=== PATIENT | male | born 1960 | race Caucasian/White ===

== ENCOUNTER 2016-10-13 06:15 | Day surgery (SDC) | payer OTHER ==
[2016-10-11 17:43] VITALS: BMI 23.7
[2016-10-13] MEDS ORDERED: ROPIVACAINE HCL 0.5% 30ML VIAL ONE (07:14)
[2016-10-13] MEDS ORDERED: MIDAZOLAM HCL 2 MG/2 ML SINGLE DOSE VIAL ONE ×2 (07:16)
[2016-10-13] MEDS ORDERED: PROPOFOL 20 ML ONE (07:41)
[2016-10-13] MEDS ORDERED: SUCCINYLCHOLINE CHLORIDE 200 MG/10 ML VIAL ONE (07:41)
[2016-10-13] MEDS ORDERED: LIDOCAINE HCL/PF 2% SDV 5ML VIAL ONE (08:17)
[2016-10-13] MEDS ORDERED: ceFAZolin SODIUM 1 GM VIAL IVPB ONE (08:25)
[2016-10-13] MEDS ORDERED: ceFAZolin SODIUM 1 GM VIAL ONE (08:26)
[2016-10-13] MEDS ORDERED: ePHEDrine SULFATE 50 MG/1 ML AMPULE ONE (08:54)
[2016-10-13] MEDS ORDERED: KETOROLAC TROMETHAMINE 30 MG/1 ML VIAL ONE (08:55)
[2016-10-13] MEDS ORDERED: DEXAMETHASONE SOD PHOSPHATE 4 MG/1 ML VIAL ONE (08:55)
[2016-10-13] MEDS ORDERED: ONDANSETRON 4 MG/2 ML VIAL IVPUSH PRN (08:56)
[2016-10-13] MEDS ORDERED: oxyCODONE HCL 5 MG TABLET PO PRN (08:56)
[2016-10-13] MEDS ORDERED: LACTATED RINGERS SOLUTION 1,000 ML IV SCH (09:00)
--- NOTE | 2016-10-13 11:06 | HP ---
[facility] - Chief Complaint Chief Complaint: right shoulder pain History Source: Patient Limitations to Obtaining History: No Limitations - Past Medical History Allergies/Adverse Reactions: Allergies Allergy/AdvReac Type Severity Reaction Status Date / Time No Known Allergies Allergy Verified 10/11/16 17:43 - Current Medications Current Medications: Home Medications Medication Instructions Recorded NK [No Known Home Medication] 10/11/16 Satellite Physical Exam - Physical Examination Vital Signs: Vital Signs Period Temp Pulse Resp BP Sys/Anthony Pulse Ox Last 24 Hr 97.2 F-97.8 F 50-73 12-20 16-131/72-81 97-99 Extremities: Other (+ impingement sign and weakness with TDA) [facility] Impression/Plan - Impression/Plan Impression: impingement right shoulder +/- RC tear Operative Procedure: athroscopy right shoulder with decompression and possible RC repair Date to be Performed: 10/13/16
--- NOTE | 2016-10-13 11:08 | OP ---
Operative Note - Note: Operative Date: 10/13/16 Pre-Operative Diagnosis: impingement +/- RC tear Operation: arthroscopy right shoulder with debridement and RC repair Post-Operative Diagnosis: Other (impingement + RC tear) Surgeon: Amor Caraballo Anesthesia: General Operative Report Dictated: Yes
[2016-10-13 14:18] VITALS: TEMP 97.6
[2016-10-13 14:31] VITALS: BP 120/70; PULSE 58
--- NOTE | 2016-10-13 20:52 | OP ---
DATE OF OPERATION: 10/13/2016 PREOPERATIVE DIAGNOSIS: Impingement syndrome, right shoulder, plus/minus rotator cuff tear. POSTOPERATIVE DIAGNOSIS: Impingement syndrome, plus rotator cuff tear. SURGICAL PROCEDURE: Arthroscopy right shoulder, subacromial debridement bone and soft tissue, and arthroscopic repair for rotator cuff. SURGICAL ATTENDING: Amor Caraballo M.D. ANESTHESIA: Regional and general. CLOSURE: A Fiberwire suture with 1 swivel lock for rotator cuff, 0 nylon for skin. ESTIMATED BLOOD LOSS: Negligible. COMPLICATIONS: None. CONDITION: To recovery room in stable condition. DESCRIPTION OF PROCEDURE: Patient was taken to the operating room on October 13, 2016. Regional and general anesthesia was administered by the anesthesiologist. Intravenous Kefzol was administered prophylactically prior to the case. Patient was placed in the beach chair position with all prominences well padded. The right shoulder area was prepped and draped in the usual sterile fashion. First a diagnostic arthroscopy of glenohumeral joint was performed and posterior portal was made 2 fingerbreadths below the acromion, first with a number 15 blade followed by a blunt trocar. Circumferential exam of glenohumeral joint revealed the following: Intact labrum. Circumferentially intact glenohumeral head. Articular cartilage intact. Intact biceps and biceps anchor. No loose bodies in the axillary pouch. intact to its insertion. On the undersurface of the supra- and infraspinatus, appeared to be intact. Fluid was drained from the shoulder and trocar was removed. Posterior trocar was redirected in subacromial space. Accessory lateral port was made 2 fingerbreadths from the trocar. A bursectomy was performed using Arthrocare device and a shaver. The undersurface of the acromion was burred until it was raised to the appropriate level. Coracoacromial ligament was identified and detached. The anterior acromial was visualized and was further debrided. Soft tissue encasing the humeral head was debrided. There appeared to be a high grade partial thickness tear of the rotator cuff, the most anterior portion. This tear was holding on by very, very thin amount of rotator cuff at its most anterior portion of the supraspinatus. This was completed using the Arthrocare device, and the area was burred, and had some bleeding bone. Using the Scorpion needle punch, the Fiberwire sutures were passed through the rotator cuff. They were placed through the eyelet hole of the swivel lock and malleted into the greater tuberosity, and the anchor was screwed adding extra fixation. The sutures were flush with the bone. Probing revealed excellent repair. Good range of motion, no interference with the subacromial space. Fluid was drained. The dressings were applied. Sling was applied. The patient was awoken from anesthesia and transferred to the recovery room in stable condition. No complications. Estimated blood loss negligible. Elise [place]/[id number]
--- NOTE | 2016-10-14 14:52 | PATH ---
Surgical Pathology Report Patient Name: CARITO KRUSE [facility]. Rec. #: [id number] /Age/Gender: 1960 (Age: 56) / M Account: [id number] Location: [facility] Taken: 10/13/2016 Received: 10/13/2016 Reported: 10/14/2016 Physicians: Amor Caraballo M.D. Specimen(s) Received SHAVINGS RIGHT SHOULDER Clinical History Right shoulder impingement syndrome Final Diagnosis SOFT TISSUE, RIGHT SHOULDER, ARTHROSCOPIC SHAVINGS: SYNOVIUM AND FIBROCARTILAGE WITH MYXOHYALINE DEGENERATION. FRAGMENTS OF UNREMARKABLE BONE AND SKELETAL MUSCLE. Electronically Signed Neno Green M.D. Gross Description Received in formalin, labeled "right shoulder shavings" is a 2.5 x 2.2 x 0.3 cm aggregate of quevedo-yellow soft tissue fragments. A canvas products sales representative portion is submitted in one cassette. /10/13/2016 saudi10/13/2016
== END 2016-10-13 13:30 | disposition home or self-care (01) ==
LOC: JASU-SURG 06:15
PROVIDERS: ATTEND Orthopaedic Surgery
PROC: 0LQ14ZZ Repair Right Shoulder Tendon, Percutaneous Endoscopic Approach (ICD-10-PCS; 2016-10-13)
PROC: 0RNJ4ZZ Release Right Shoulder Joint, Percutaneous Endoscopic Approach (ICD-10-PCS; 2016-10-13)
PROC: 0RBJ4ZZ Excision of Right Shoulder Joint, Percutaneous Endoscopic Approach (ICD-10-PCS; principal; 2016-10-13 08:00)
DX: M75.41 Impingement syndrome of right shoulder (principal); M75.101 Unspecified rotator cuff tear or rupture of right shoulder, not specified as traumatic
CPT/HCPCS: 88304-TC; 94760